=== PATIENT | female | born 2000 | race Caucasian/White ===

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

== ENCOUNTER 2020-01-23 17:04 | Emergency (ER) | payer OTHER, MEDICAID ==
[~2020-01-23] VITALS: Ht 170.2 cm; Wt 81.8 kg
[2020-01-23 17:04] VITALS: BP 128/77; TEMP 98.2
[~2020-01-23 17:04] MED LIST: OMNICEF 300MG300 MG PO; PHENERGAN 25 TA25 MG PO
[2020-01-23 18:17] VITALS: PULSE 89
== END 2020-01-23 18:16 | disposition home or self-care (01) ==
LOC: COL.ER 17:04
DX: S40.011A Contusion of right shoulder, initial encounter (principal); V49.60XA Unspecified car occupant injured in collision with unspecified motor vehicles in traffic accident, initial encounter

== ENCOUNTER 2021-03-18 10:15 | Emergency (ER) | payer MEDICAID ==
[~2021-03-18] VITALS: Ht 170.2 cm; Wt 81.8 kg
[2021-03-18 10:21] VITALS: TEMP 97.7
[2021-03-18] MEDS ORDERED: ZITHROMAX 250M250 MG PO (12:38)
[2021-03-18 13:04] VITALS: BP 119/84; PULSE 100
== END 2021-03-18 13:04 | disposition home or self-care (01) ==
LOC: COL.ER 10:15
DX: A74.9 Chlamydial infection, unspecified (principal)